=== PATIENT | male | born 1960 | race Caucasian/White ===

== ENCOUNTER 2022-11-16 07:11 | Day surgery (SDC) | payer BC ==
[2022-11-08 16:15] LABS: BASOPHILS % (AUTO) 0.6 % (0-1); EOSINOPHILS # (AUTO) 0.1 X10'3 (0-0.9); EOSINOPHILS % (AUTO) 1.8 % (0-6); LYMPHOCYTES # (AUTO) 1.9 X10'3 (1.1-4.8); LYMPHOCYTES % (AUTO) 26.6 % (21-51); MEAN CORPUSCULAR HEMOGLOBIN 32.4 PG (27.0-31.0); MEAN CORPUSCULAR HGB CONC 33.4 g/dL (33.0-36.5); MEAN CORPUSCULAR VOLUME 96.9 FL (78-98); MEAN PLATELET VOLUME 8.4 FL (7.4-10.4); MONOCYTES # (AUTO) 0.6 X10'3 (0-0.9); MONOCYTES % (AUTO) 8.4 % (2-12); NEUTROPHILS # (AUTO) 4.4 X10'3 (1.8-7.7); NEUTROPHILS % (AUTO) 62.6 % (42-75); PRE OP HEMATOCRIT 42.5 % (42.0-52.0); PRE OP HEMOGLOBIN 14.2 g/dL (14.0-17.9); PRE OP PLATELET COUNT 298 X10'3 (140-440); RED BLOOD COUNT 4.39 X10'6 (4.70-6.10); RED CELL DISTRIBUTION WIDTH 13.5 % (11.5-14.5)
[2022-11-08 16:36] LABS: ALBUMIN 3.9 G/DL (3.4-5.0); ALBUMIN/GLOBULIN RATIO 1.2 (1.1-1.5); ALKALINE PHOSPHATASE 84 IU/L (46-116); BLOOD UREA NITROGEN 22 MG/DL (7-18); BUN/CREATININE RATIO 19.1 (5.4-32.0); CHLORIDE 108 MMOL/L (99-107); CREATININE 1.15 MG/DL (0.60-1.10); PRE OP ALT 37 U/L (30-65); PRE OP ANION GAP 6 (8-16); PRE OP AST 23 U/L (10-37); PRE OP BILIRUB, TOTAL 0.3 MG/DL (0.0-1.0); PRE OP GLUCOSE 96 MG/DL (70-104); PRE OP POTASSIUM 4.5 MMOL/L (3.4-5.1); PRE OP SODIUM 141 MMOL/L (135-145); TOTAL CARBON DIOXIDE 27.3 MMOL/L (24-32); TOTAL PROTEIN 7.2 G/DL (6.4-8.2); eGFR 64 ML/MIN
[~2022-11-16] VITALS: Ht 172.7 cm; Wt 93.2 kg
[2022-11-16] VITALS (8 sets, daily range): BP systolic 109–141; BP diastolic 74–84
[~2022-11-16 07:11] MED LIST: ASPI81TA52 PO; BUPR-317 PO; LISI20TA28 PO; LORA10TA7 PO; cefazolin 2gm/D5W 100mL 100 ML IV ONE; famotidine 20mg tablet PO ONE; ringers solution, lacted 1,000 ML IV SCH
[2022-11-16] MEDS ORDERED: morphine 4 MG/ML inj SYRINge IV PRN (07:40)
[2022-11-16] MEDS ORDERED: proCHLORperazine 10 MG/2 ml inj IV PRN (07:40)
[2022-11-16] MEDS ORDERED: meperidine/PF 25mg/ml syringe IV PRN ×3 (07:40)
[2022-11-16] MEDS ORDERED: ondansetron/PF 4mg/2ml inj IV PRN (07:40)
[2022-11-16] MEDS ORDERED: ringers solution, lacted 1,000 ML IV SCH (07:40)
[2022-11-16] MEDS ORDERED: morphine 2 MG/ML inj. syringe IV PRN (07:40)
[2022-11-16] MEDS ORDERED: fentaNYL/PF 50MCG/1 ML 2ML syringe ONE (10:49)
[2022-11-16] MEDS ORDERED: BUPIVAcaine/PF 2.5 mg/ml (0.25%) 30ml vial ONE (10:49)
[2022-11-16] MEDS ORDERED: propofol inj 20 ML IV ONE (10:50)
[2022-11-16] MEDS ORDERED: midazolam 1 mg/ML 2ml injection ONE (10:50)
[2022-11-16] MEDS ORDERED: LIDOcaine 2% (20mg/ml) 5ml vial ONE (10:50)
[2022-11-16] MEDS ORDERED: sevoflurane 250ml liquid IH ONE (10:51)
[2022-11-16] MEDS ORDERED: BUPIVAcaine/PF 7.5mg/ml (0.75%) 10ml vial ONE (10:53)
[2022-11-16] MEDS ORDERED: dexamethasone sod phosphate 4mg/ml inj. ONE (11:11)
[2022-11-16] MEDS ORDERED: ondansetron/PF 4mg/2ml inj ONE (11:12)
[2022-11-16] MEDS ORDERED: bacitracin 15gm ointment TP ONE (11:46)
--- NOTE | 2022-11-16 12:05 | NUR ---
Received from OR via BED, accompanied by Anesthesiologist and report given by Anesthesiologist. PATIENT WAKING UP, NO S/S OF PAIN, V/S WNL, SCD ON, 20G TO LUE,LEFT ANKLE FOOT DRESSING CDI WITH PIN INTERNAL TO 1 TOE VISABLE. WALKING BOOT ON. 20G PIV LUE
--- NOTE | 2022-11-16 13:05 | NUR ---
PATIENT [id number], DENIES, PAIN, V/S WNL, SCD ON, 20G TO EDITH D/C,LEFT ANKLE FOOT DRESSING CDI WITH PIN INTERNAL TO 1 TOE VISABLE. WALKING BOOT ON. I HAVE REVIEWED D/C INSTRUCTIONS WITH PATIENT INSTRUCTIONS WITH PATIENT AND THEY HAVE VERBALIZED UNDERSTANDING. PATIENT D/C HOME WITH ALL BELONGINGS AND FAMILY TRANSPORTED PATIENT HOME.
== END 2022-11-16 13:05 | disposition home or self-care (01) ==
LOC: PAS 07:11
PROVIDERS: ATTEND Podiatrist Foot & Ankle Surgery
DX: M20.42 Other hammer toe(s) (acquired), left foot (principal); M24.575 Contracture, left foot; I10 Essential (primary) hypertension; F32.A Depression, unspecified; G47.30 Sleep apnea, unspecified; G89.18 Other acute postprocedural pain; Z79.899 Other long term (current) drug therapy; Z88.0 Allergy status to penicillin; Z98.890 Other specified postprocedural states; Z90.49 Acquired absence of other specified parts of digestive tract; Z79.82 Long term (current) use of aspirin
CPT/HCPCS: 28270; 28285; 36415; 64447; 64450; 73620; 76000; 80053; 82948; 85025; 93005; A6222; C1713; J0690; J1100; J2250; J2405; J2704; J3010; J3490; J7030; J7120; Z7506; Z7508; Z7512; A4618; A6449; A7000